=== PATIENT | female | born 1940 | race Caucasian/White ===

== ENCOUNTER 2018-06-19 02:30 | Emergency (ER) | payer MEDICARE, SELFPAY ==
[2018-06-19 02:31] VITALS: BP 200/87; PULSE 60; RESP 18; TEMP 36.7; O2SAT 97; BMI 23.4
--- NOTE | 2018-06-19 02:45 | CT_ITS ---
STUDY: CT ABDOMEN AND PELVIS WITHOUT CONTRAST REASON FOR EXAM: Female, 78 years old. Abdominal pain. Nausea. History of small bowel obstruction with resection. History of appendectomy without complications. History of breast cancer. RADIATION DOSAGE (If Supplied By Facility): CTDIvol = ( 6.56 ) mGy, DLP = ( 281.87 ) mGycm TECHNIQUE: Transaxial images were obtained from the dome of the diaphragm to the symphysis pubis without oral contrast, and without intravenous contrast. Sagittal and coronal images were reconstructed. Individualized dose optimization techniques were used for this CT. COMPARISON: None. FINDINGS: The visualized lung bases are unremarkable. The visualized portions of the heart are within normal limits. Small hiatal hernia. Normal liver. Normal gallbladder and extrahepatic biliary system. Normal spleen. Normal pancreas. Normal bilateral adrenal glands. Normal right kidney. Normal left kidney. Evaluation of solid organs is limited without intravenous contrast. Normal visualized stomach. Fluid-filled loops of small bowel some dilated to 2.9 cm compatible with a mid/distal small bowel obstruction. Terminal ileum is normal. Transition zone in the mid pelvis. Normal colon. There is non-visualization of the appendix compatible with history of appendectomy.. Suture line right anterior hemipelvis. Normal abdominal aorta. Normal inferior vena cava. Normal retroperitoneum. No intra-abdominal free air. Normal urinary bladder. Uterus is not enlarged. No adnexal masses seen. Normal abdominal wall. Multilevel degenerative changes of the lumbar spine. Lumbar levoscoliosis. No evidence of bony metastases. CT/Abdomen/Pelvis without Cont IMPRESSION: Mid/distal small bowel obstruction probably secondary to adhesions. Small hiatal hernia. Electronically Signed: Sai Cruz MD at 4:00 EST , Service support ,
--- NOTE | 2018-06-19 02:47 | ED.VISSUMM ---
- ER Visit Summary Date of Service: 06/19/18 Chief Complaint: [] Lower abdominal pain History of Present Illness: The patient is a 78 F with lower abdominal pain since yesterday at 11 PM gradual onset is intermittent and leaves for a few minutes and then 10 tends to come back in waves. She stated it feels like labor pains. Current severity is mild. It gets significant and then calms down. Worsened by nothing. Relieved with time only. She had some nausea but currently does not. No vomiting. Normal bowel movement yesterday. No home treatment. No significant passing of flatus. She does have a history of a small bowel obstruction from a hernia. This was operated on surgically. She was left to close by secondary intention. She is left with a chronic large hernia in her lower abdomen. This is the area where she is having the discomfort. Physical Examination: [] Vital signs reviewed General: Well-nourished well-developed Head: Normocephalic atraumatic Eyes: Pupils equal round and reactive to light extraocular movements intact ENT: TMs clear no hemotympanum no trauma Neck: Nontender full range of motion Cardiovascular: Regular rate rhythm no murmurs normal S1-S2 Respiratory: No distress clear to auscultation bilaterally chest nontender Abdomen: Soft nontender nondistended. Hernia visualized with no tenderness over it. Normal bowel sounds no masses Back: Nontender no CVA tenderness Extremities: Nontender active range of motion ?4 extremities no trauma Skin: Normal color no trauma Neuro alert oriented cranial nerves II through XII intact normal strength sensation reflexes Test Results: [] Emergency Department Course and Treatment: [] Patient did anything for pain. Lab work and CT abdomen pelvis obtained. Lab work shows a white count of 11.7. Chemistries normal except glucose 107. Liver function tests normal. CT shows mid to distal small bowel obstruction with the transition zone in the mid pelvis. Discussed with surgery Dr. Son. Due to the fact that the patient has a large hernia and required a small bowel resection and surgical repair for previous small bowel obstruction she felt like the patient would be better served at the [facility]. Discussed with Dr. madsen with surgery at the [facility] who accepted her in transfer. NG tube was placed without complication. Treatment Plan: [] Disposition: [] Impression: [] Small bowel obstruction?recurrent This note was generated with [employer] software. It may contain incorrect words, spelling, and punctuation that were not noted in review of the chart prior to signing ED Disposition - Plan for ED Patient: Referrals: NOT,DEFINED [NON-STAFF] -
[2018-06-19 02:53] LABS: Absolute Lymphocyte Count 1.55 X10^3/ul (0.83-4.51); Absolute Neutrophil Count 8.6 X10^3/uL (2.0-7.7); Basophil# 0.12 X10^3/uL; Eosinophils% 3.4 % (0-5); Hematocrit 46.5 % (37-47); Hemoglobin 15.3 g/dl (12.0-15.0); Lymphocyte # 1.55 X10^3/ul (4.0); Lymphocyte % 13.3 % (19-41); Mean Corp Hgb Conc 32.9 g/gl (32-36); Mean Corpuscular Hgb 29.9 pg (27.0-32.0); Mean Platelet Vol. 9.5 fl (6.2-12.0); Monocyte# 0.96 X10^3/uL; Monocyte% 8.2 % (0-10); Neutrophil # 8.61 X10^3/uL (2.7-7.7); Neutrophil % 73.8 % (47-70); Platelet Count 256 K/mm3 (150-450); RBC Distribution Width CV 13.7 % (11.6-14.6); RBC Distribution Width SD 45.1 fl (35.1-43.9); Red Blood Count 5.11 M/mm3 (4.2-5.4); White Blood Count 11.7 K/mm3 (4.4-11.0)
[2018-06-19 02:59] LABS: POSITIVE COUNT NO; POSITIVE DIFFERENTIAL NO; POSITIVE MORPHOLOGY NO
[2018-06-19 03:04] LABS: BUN 17 mg/dL (7-18); Creatinine, Serum 1.01 mg/dL (0.55-1.02); EST Glomerular Filtration Rate 56 mL/min (>60); Estimated Creatinine Clearance 39.64 ml/min; Glucose 107 mg/dL (74-106)
[2018-06-19 03:05] LABS: ALB/GLOB Ratio 1.1 RATIO (0.9-2.4); AST(SGOT) 18 U/L (15-37); Alanine Aminotransfer ALT/SGPT 18 U/L (13-56); Alkaline Phosphatase 53 U/L (45-117); Anion Gap 5 (5-15); BUN/Creat Ratio 16.8 RATIO (10-20); Calcium,Total 9.4 mg/dL (8.5-10.1); Chloride 105 mmol/L (98-107); Est Glom Filt Rate - Afr Amer 68 mL/min (>60); Globulin 3.5 g/dL (2.2-4.2); Potassium 4.1 mmol/L (3.5-5.1); Protein, Total 7.5 g/dL (6.4-8.2); Sodium Level 138 mmol/L (136-145)
--- NOTE | 2018-06-19 04:11 | RAD_ITS ---
STUDY: X-RAY - ABDOMEN/PELVIS REASON FOR EXAM: Female, 78 years old. Nasogastric tube placement. TECHNIQUE: AP supine abdomen. COMPARISON: CT abdomen and pelvis June 19, 2018. FINDINGS: Normal visualized lung bases. Nasogastric tube tip in the mid abdomen in the region of the proximal gastric body. Mildly prominent loops of small bowel in the left abdomen. The CT scan better demonstrates the mid/distal small bowel obstruction. There is no demonstrated free abdominal air. The visualized liver, spleen and kidneys are grossly normal in size and morphology. Normal soft tissue structures. Lumbar levoscoliosis. Multilevel degenerative changes of the lumbar spine. RAD/Abdomen Single View (Portable) IMPRESSION: Nasogastric tube tip in the proximal gastric body. Small bowel obstruction best visualized on the CT scan. Electronically Signed: Sai Cruz MD at 5:29 EST , Service support ,
[2018-06-19 04:25] VITALS: BP 152/115; PULSE 56; RESP 15; O2SAT 97
--- NOTE | 2018-06-19 05:03 | NURSING ---
ACCEPTED TO [facility] [id number] B[facility] RE[facility] TO ARRIVE AT 6:30A
[2018-06-19 05:18] VITALS: BP 152/115; PULSE 56; RESP 15; TEMP 36.4; O2SAT 97
[2018-06-19] MEDS: Ondansetron 4 MG/2 ML Vial IV (06:36)
[2018-06-19 06:50] VITALS: BP 174/80; PULSE 66; RESP 15; O2SAT 97
== END 2018-06-19 07:18 | disposition short-term general hospital (02) ==
PROVIDERS: Emergency Provider Emergency Medicine
DX: K56.699 Other intestinal obstruction unspecified as to partial versus complete obstruction (principal); I10 Essential (primary) hypertension
CPT/HCPCS: 74018; 74176; 80053; 85025; 96374; 99285; J2405